=== PATIENT | male | born 1970 | race Caucasian/White ===

== ENCOUNTER → 2018-02-07 12:31 | Outpatient (CLI) | payer OTHER, SELFPAY | PROVIDERS: PCP Family Medicine | DX: Z23 Encounter for immunization (principal) | CPT/HCPCS: 90471; 90686 ==

== ENCOUNTER → 2019-02-20 15:36 | Outpatient (CLI) | payer OTHER, SELFPAY | PROVIDERS: PCP Family Medicine | DX: Z23 Encounter for immunization (principal) | CPT/HCPCS: 90471; 90686 ==

== ENCOUNTER → 2022-04-11 08:36 | Outpatient (CLI) | payer OTHER, SELFPAY ==
[2022-04-11 10:02] LABS: Add Manual Diff / Slide Review NO; Basophils Absolute Auto 0 /uL (0-100); Basophils Percent Auto 0.6 % (0-2); Eosinophils Absolute Auto 100 /uL (0-450); Hematocrit 43.4 % (41-53); Lymphocytes Absolute Auto 1300 /uL (1100-4500); Mean Corpuscular HGB Conc 34.6 % (30-36); Mean Corpuscular Hemoglobin 29.9 PG (26-34); Mean Corpuscular Volume 86.5 fL (80-100); Monocytes Absolute Auto 400 /uL (0-900); Monocytes Percent Auto 8.9 % (3-14); Neutrophils Absolute Auto 3000 /uL (1500-7000); Neutrophils Percent Auto 61.5 % (50-75); Platelet Count 235 X10^3/uL (150-400); Red Blood Cell Count 5.01 X10^6/uL (4.5-5.9); Red Cell Distribution Width 13.8 % (11.6-14.8); White Blood Cell Count 4.9 X10^3/uL (4.5-11.0)
[2022-04-11 16:04] LABS: Alanine Aminotransferase 28 IU/L (<50); Albumin 4.5 g/dL (3.5-5.0); Albumin Globulin Ratio 1.4 (1.0-2.8); Alkaline Phosphatase 85 U/L (38-126); Aspartate Aminotransferase 27 IU/L (17-59); BUN Creatinine Ratio 17.6 (6-22); Bilirubin Total 0.6 mg/dL (0.2-1.3); Blood Urea Nitrogen 13 mg/dL (9-20); Calcium 9.3 mg/dL (8.4-10.2); Carbon Dioxide 30 mmol/L (22-32); Chloride 101 mmol/L (98-107); Cholesterol 215 mg/dL (140-199); Estimated Glomerular Filt Rate > 60 mL/min (>60); Globulin 3.2 g/dL (1.7-4.1); Glucose 95 mg/dL (70-100); HDL Cholesterol 51 mg/dL (40-60); HEMOLYSIS < 15 (0-50); LDL Cholesterol Calculated 132 mg/dL (<100); Potassium 4.6 mmol/L (3.4-5.1); Sodium 140 mmol/L (137-145); Total Protein 7.7 g/dL (6.3-8.2); Triglycerides 159 mg/dL (35-150)
== END ==
PROVIDERS: PCP Family Medicine; Referring Provider Family Medicine; Visit Provider Family Medicine
DX: Z13.220 Encounter for screening for lipoid disorders (principal)
CPT/HCPCS: 36415; 80053; 80061; 84443; 85025

== ENCOUNTER 2023-04-06 06:37 | Day surgery (SDC) | payer OTHER, SELFPAY ==
[2023-04-06] VITALS (8 sets, daily range): BP systolic 86–145; BP diastolic 60–83; PULSE 65–75; RESP 14–18; TEMP 36.1–36.2; O2SAT 97–100; BMI 24.3
--- NOTE | 2023-04-06 | PATH_ITS ---
[facility] Accession Number: [id number] No. of containers..01 Tissue . 01 Material submitted: . rectum - RECTAL POLYP . 01 Diagnosis: Rectal Polyp: Superficial portion of colorectal mucosa with multiple benign lymphoid aggregates and patchy, mild hyperplastic mucosal change. [facility] 04/19/2023 1419 Local . 01 Electronically signed: . Sarah Verduzco MD, Pathologist NPI- [id number] . 01 Gross description: . RECTAL POLYP: Received in formalin is 1 fragment(s) of acharya, soft tissue measuring 0.5 x 0.3 x 0.1 cm submitted entirely in 1 cassette(s) /AAY 04/10/2023 0143 Local . 01 Pathologist provided ICD-10: K63.5 . 01 CPT . 655517 Specimen Comment: A courtesy copy of this report has been sent to [phone] Performed at: 01 [facility] [address] [place] [address] [address] [facility] [place][note 2], [place], [place] [id number] MD Peter Curran MD Phone: [phone]
[2023-04-06] MEDS: LACTATED RINGERS 1,000 ML 120 ML IV (07:07)
--- NOTE | 2023-04-06 07:51 | P.HP_ITS ---
History of Present Illness History of Present Illness Date Patient Seen: 04/06/23 Time Patient Seen: 07:51 Chief complaint: Screening Colonoscopy Narrative: No family history for colon cancer, last scope 10 yrs ago for abdominal pain. FORMERLY [facility], 1928–1983 Surgical History Status post eye surgery Status post colonoscopy Status post colonoscopy Family History Father Heart disease Hypertension Mother Age: 73 Cancer Heart disease Hypertension High cholesterol Osteoporosis Social History marital status: household members: spouse Smoking Status: Never smoker alcohol intake: current substance use type: does not use Meds Home Medications and Allergies Home Medications Medication Instructions Recorded Confirmed Type desonide 0.05 % topical cream See Rx Instructions .Route 09/11/22 04/06/23 Rx .COMPLEX #60 grams sodium,potassium,mag sulfates 17.5 See Rx Instructions PO .COMPLEX 03/30/23 Rx gram-3.13 gram-1.6 gram oral soln #354 mL (Suprep Bowel Prep Kit) nortriptyline 10 mg capsule 90 mg PO BEDTIME 04/06/23 04/06/23 History Allergies Allergy/AdvReac Type Severity Reaction Status Date / Time No Known Drug Allergies Allergy Verified 04/06/23 06:44 Review of Systems Review of Systems ROS: Yes All systems reviewed with the patient and are negative except as otherwise documented Exam Vital Signs (past 8 hours): - 04/06/23 06:52 Temperature 97.2 F L Pulse Rate 75 Respiratory Rate 16 Blood Pressure 130/83 Pulse Oximetry 99 Oxygen Delivery Method Room Air Oxygen Delivery Method Room Air Const General: cooperative and anxious Nutritional Appearance: average body habitus [facility] Head: normocephalic and atraumatic Eyes General: appearance normal, both eyes and all related structures Neck Neck: trachea midline Chest Chest: normal inspection of the chest Resp Effort & Inspection: normal respiratory effort and able to speak in complete sentences Cardio Rate: regular rate Rhythm: regular rhythm GI Palpation: soft and No tender Skin General: turgor normal and crusts Neuro General: patient alert, patient awake and patient oriented x3 Psych Appearance: grossly normal Mental Status: mental status grossly normal Judgment: judgment good Assessment & Plan Assessment & Plan narrative: colon cancer screening with colonoscopy using anesthesia Time Spent With Patient Time with patient: less than 30 minutes
--- NOTE | 2023-04-06 08:10 | PM.OP.COLON ---
Operative Date/Time/Diagnoses Date of procedure: 04/06/23 Time of procedure: 08:10 Pre-op diagnosis: Colon cancer screening Post-op diagnosis: same Procedure & Clinicians Study performed: Colonoscopy with anesthesia and cold forceps polypectomy Same procedure as scheduled: Yes Indications: Colon cancer screening Surgeon: Julianna Conti Procedure Notes Procedure in detail: Preop diagnosis: Colon cancer screening Postop diagnosis: Same Operative procedure: Colonoscopy with cold forceps polypectomy using anesthesia Surgeon: Mounika Conti MD Findings: Small sessile 2 mm polyp in the rectum. Procedure: Patient placed in a lateral position. Rectal exam performed showing normal tone no masses. Colonoscope inserted into the rectum and advanced to ileocecal valve with minimal difficulty. Insufflation extraction of the scope and the above findings. Retroflex was included in the rectum. Impression: Small adenomatous appearing polyp removed from the rectum. No diverticulosis identified. Plan: Anticipate this will be an adenomatous polyp of pathology, if it is, he will need screening every 5 years. Findings: polyp(s) (2 mm, sessile, rectum) Specimen(s): other (Polyp) Complications: none Post-procedure Recommendations: Colonoscopy in 5 years Follow up: as needed Disposition: PACU
== END 2023-04-06 08:56 | disposition home or self-care (01) ==
PROVIDERS: PCP Family Medicine; Referring Provider Surgery; Visit Provider Surgery
PROC: 0DJD8ZZ Inspection of Lower Intestinal Tract, Via Natural or Artificial Opening Endoscopic (ICD-10-PCS; CPT 45378; principal; 2023-04-06 07:45)
DX: Z12.11 Encounter for screening for malignant neoplasm of colon (principal); K63.5 Polyp of colon
CPT/HCPCS: 45380; J2704

== ENCOUNTER → 2024-04-01 08:19 | Outpatient (CLI) | payer OTHER, SELFPAY ==
[2024-04-01 09:27] LABS: Add Manual Diff / Slide Review NO; Basophils Absolute Auto 0 /uL (0-100); Basophils Percent Auto 0.9 % (0-2); Eosinophils Absolute Auto 100 /uL (0-450); Eosinophils Percent Auto 3.2 % (2-4); Hematocrit 43.2 % (41-53); Hemoglobin 14.6 g/dL (13.5-17.5); Lymphocytes Absolute Auto 1200 /uL (1100-4500); Lymphocytes Percent Auto 27.9 % (25-40); Mean Corpuscular HGB Conc 33.9 % (30-36); Mean Corpuscular Hemoglobin 29.9 PG (26-34); Mean Corpuscular Volume 88.3 fL (80-100); Monocytes Absolute Auto 400 /uL (0-900); Neutrophils Absolute Auto 2500 /uL (1500-7000); Platelet Count 293 X10^3/uL (150-400); Red Blood Cell Count 4.89 X10^6/uL (4.5-5.9); Red Cell Distribution Width 13.8 % (11.6-14.8); White Blood Cell Count 4.3 X10^3/uL (4.5-11.0)
[2024-04-01 10:00] LABS: Alanine Aminotransferase 27 IU/L (<50); Albumin 4.7 g/dL (3.5-5.0); Albumin Globulin Ratio 1.6 (1.0-2.8); Alkaline Phosphatase 74 U/L (38-126); Aspartate Aminotransferase 35 IU/L (17-59); Bilirubin Total 0.7 mg/dL (0.2-1.3); Blood Urea Nitrogen 15 mg/dL (9-20); Carbon Dioxide 27 mmol/L (22-32); Chloride 105 mmol/L (98-107); Cholesterol 233 mg/dL (140-199); Estimated Glomerular Filt Rate > 60 mL/min (>60); Glucose 104 mg/dL (70-100); HDL Cholesterol 57 mg/dL (40-60); HEMOLYSIS < 15 (0-50); LDL Cholesterol Calculated 159 mg/dL (<100); Potassium 4.7 mmol/L (3.4-5.1); Sodium 139 mmol/L (137-145); Total Protein 7.7 g/dL (6.3-8.2); Triglycerides 84 mg/dL (35-150)
[2024-04-01 10:32] LABS: TSH w/ Reflex to FT4 0.77 uIU/mL (0.47-4.68)
== END ==
PROVIDERS: PCP Family Medicine; Referring Provider Family Medicine; Visit Provider Family Medicine
DX: Z13.220 Encounter for screening for lipoid disorders (principal); R10.9 Unspecified abdominal pain
CPT/HCPCS: 36415; 80053; 80061; 84443; 85025

== ENCOUNTER 2024-07-21 20:25 | Emergency (ER) | payer OTHER, SELFPAY ==
[2024-07-21] VITALS (11 sets, daily range): BP systolic 133–156; BP diastolic 81–93; PULSE 68–83; RESP 17–20; TEMP 36.6; O2SAT 95–98; BMI 25.0
--- NOTE | 2024-07-21 21:00 | DI.CT.S_ITS ---
PROCEDURE: CT HEAD/BRAIN WO CON INDICATIONS: worse headache of life TECHNIQUE: Noncontrast 4.5 mm thick angled axial sections acquired from the foramen magnum to the vertex, with coronal and sagittal reformats. For radiation dose reduction, the following was used: automated exposure control, adjustment of mA and/or kV according to patient size. COMPARISON: None. FINDINGS: Image quality: Diagnostic. CSF spaces: Basal cisterns are patent. No extra-axial fluid collections. Ventricles are normal in size and shape. Brain: No midline shift. No intracranial masses or hemorrhage. Garcia-white matter interface is normal. Skull and face: Calvarium and visualized facial bones are intact, without suspicious lesions. Sinuses: Visualized sinuses and mastoids are clear. IMPRESSION: No acute intracranial pathology. Dictated by: Merritt Rodriguez M.D. on 07/21/2024 at 21:25 Approved by: Merritt Rodriguez M.D. on 07/21/2024 at 21:26
--- NOTE | 2024-07-21 21:19 | PC.NURSE ---
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 Patient states that nothing makes the headache better or worse, has tried excedrin, tylenol, advil, percocet
[2024-07-21] MEDS: PROCHLORPERAZINE 10 MG/2 ML VIAL IV (22:05)
[2024-07-21] MEDS: PROPARACAINE 0.5% OPHTH SOL 1 DROPS EYE-LEFT (22:06)
[2024-07-21] MEDS: KETOROLAC 30 MG/ML VIAL 15 MG IV (22:06)
[2024-07-21] MEDS: SODIUM CHLORIDE 0.9% 1,000 ML 1000 ML IV (22:06)
[2024-07-22] VITALS: BP 129/84; PULSE 73; O2SAT 95
--- NOTE | 2024-07-22 | ED_ITS ---
HPI - Headache General Chief Complaint: Headache Stated Complaint: HI x3 days Time Seen by Provider: 07/21/24 21:38 Mode of arrival: Ambulatory History of Present Illness HPI Narrative: Patient is a 53-year-old healthy male who had cornea transplant in the right eye 8 months ago is followed closely with Ophthalmology in [place]. Reports that he started taking 60 mg of prednisone 2 days ago he has had 2 doses and started having headaches. He thinks he is reacting to the prednisone. He felt a little nauseous no vomiting weakness. They just started taking out some of the sutures from his corneal transplant. They recently took out a couple in his eye got really inflamed. He denies any fever chills no neck pain. He has not had his eyedrops tonight. Related Data Previous Rx's Medication Instructions Recorded desonide 0.05 % topical cream See Rx Instructions .Route 08/27/23 .COMPLEX #60 grams ipratropium bromide 21 mcg (0.03 2 spray intranasal BID-TID PRN 10/22/23 %) nasal spray allergy symptoms #30 mL ketoconazole 2 % topical cream See Rx Instructions topical BID 10/22/23 #60 grams nortriptyline 10 mg capsule 30 mg (3 x 10 mg) PO ONCE PM #90 07/15/24 caps hydrocodone 5 mg-acetaminophen 325 1 tab PO Q6H PRN pain #10 tabs 07/22/24 mg tablet Allergies Allergy/AdvReac Type Severity Reaction Status Date / Time No Known Drug Allergies Allergy Verified 10/22/23 15:32 Patient History Surgical History Status post eye surgery Status post colonoscopy Status post colonoscopy Family History Father Heart disease Hypertension Mother Age: 75 Cancer Heart disease Hypertension High cholesterol Osteoporosis Social History marital status: household members: spouse Smoking Status: Never smoker alcohol intake: current substance use type: does not use Smoking Status: Never smoker alcohol intake frequency: a few times a month Exam Initial Vital Signs Initial Vital Signs: Vital Signs Temperature 97.8 F 07/21/24 20:31 Pulse Rate 83 07/21/24 20:31 Respiratory Rate 20 07/21/24 20:31 Blood Pressure 156/93 H 07/21/24 20:31 Pulse Oximetry 98 07/21/24 20:31 Oxygen Delivery Method Room Air 07/21/24 20:31 GENERAL: Alert 53-year-old male no acute distress HEENT: Head atraumatic,EOMI, pupils reactive, face symmetric, moist mucous membranes, not tender over temporal artery EYES: Right eye erythematous pressure 23 mmHg, extraocular muscles intact Left eye extraocular movements intact within normal limits pressure 25 mm Hg CARDIOVASCULAR: Regular rate and rhythm without murmurs, rubs or gallops. RESPIRATORY: Breath sounds equal bilaterally, no wheezes rales or rhonchi. EXTREMITIES: Normal range of motion, no clubbing or edema. Neurovascularly intact NEUROLOGICAL: Alert and oriented x4.Normal gait and speech. Cranial nerves II through XII grossly intact. Radio Technician strength equal bilaterally SKIN: Warm, dry, no laceration, no petechiae, no rashes or lesions. Course Orders Ordered: ED Orders 07/21/24 21:00 CT head/brain wo con Stat Discontinued Medications Hydrocodone Bitart/Acetaminophen (Hydrocodone/Acet 5/325 Prepack) 1 bottle MISC DIRECTED ONE Stop: 07/22/24 00:19 Last Admin: 07/22/24 00:25 Dose: 1 bottle Documented By: ESTEBAN Sodium Chloride (Normal Saline 0.9%) 1,000 mls @ 1,000 mls/hr IV BOLUS ONE Stop: 07/21/24 22:55 Last Infusion: 07/21/24 22:52 Dose: Infused Documented By: Admin: 07/21/24 22:06 Dose: 1,000 mls/hr Documented By: ARCELIA Ketorolac Tromethamine (Ketorolac 30 Mg/Ml Vial) 15 mg IV NOW ONE Stop: 07/21/24 21:57 Last Admin: 07/21/24 22:06 Dose: 15 mg Documented By: ARCELIA Prochlorperazine (Prochlorperazine 10 Mg/2 Ml Vial) 10 mg IV NOW ONE Stop: 07/21/24 21:57 Last Admin: 07/21/24 22:05 Dose: 10 mg Documented By: ARCELIA Proparacaine HCl (Proparacaine 0.5% Ophth Coty) 1 drops EYE-LEFT NOW ONE Stop: 07/21/24 21:59 Last Admin: 07/21/24 22:06 Dose: 1 drop Documented By: ARCELIA Vital Signs Vital signs: Vital Signs - 8 hr 07/21/24 20:54 07/21/24 21:00 07/21/24 21:01 Pulse Rate 76 77 Respiratory Rate Blood Pressure 156/91 H Pulse Oximetry 97 96 Oxygen Delivery Method 07/21/24 21:01 07/21/24 21:30 07/21/24 22:00 Pulse Rate 77 72 70 Respiratory Rate Blood Pressure Pulse Oximetry 96 95 95 Oxygen Delivery Method Room Air 07/21/24 22:05 07/21/24 22:11 07/21/24 22:11 Pulse Rate 73 83 Respiratory Rate Blood Pressure 156/91 H 141/85 H Pulse Oximetry 95 Oxygen Delivery Method 07/21/24 22:30 07/21/24 22:30 07/21/24 23:00 Pulse Rate 69 68 Respiratory Rate 18 17 Blood Pressure 142/85 H Pulse Oximetry 95 96 Oxygen Delivery Method Room Air Room Air 07/21/24 23:00 07/21/24 23:30 07/21/24 23:30 Pulse Rate 71 Respiratory Rate Blood Pressure 133/82 138/81 Pulse Oximetry 96 Oxygen Delivery Method 07/22/24 00:00 07/22/24 00:00 07/22/24 00:30 Pulse Rate 73 77 Respiratory Rate 14 Blood Pressure 129/84 Pulse Oximetry 95 96 Oxygen Delivery Method 07/22/24 00:30 Pulse Rate Respiratory Rate Blood Pressure 136/83 Pulse Oximetry Oxygen Delivery Method MDM - Headache Imaging Data CT scan - head: Radiologist's Impression: PROCEDURE: CT HEAD/BRAIN WO CON INDICATIONS: worse headache of life TECHNIQUE: Noncontrast 4.5 mm thick angled axial sections acquired from the foramen magnum to the vertex, with coronal and sagittal reformats. For radiation dose reduction, the following was used: automated exposure control, adjustment of mA and/or kV according to patient size. COMPARISON: None. FINDINGS: Image quality: Diagnostic. CSF spaces: Basal cisterns are patent. No extra-axial fluid collections. Ventricles are normal in size and shape. Brain: No midline shift. No intracranial masses or hemorrhage. Garcia-white matter interface is normal. Skull and face: Calvarium and visualized facial bones are intact, without suspicious lesions. Sinuses: Visualized sinuses and mastoids are clear. IMPRESSION: No acute intracranial pathology. Dictated by: Merritt Rodriguez M.D. on 07/21/2024 at 21:25 Approved by: Merritt Rodriguez M.D. on 07/21/2024 at 21:26 MDM Narrative Medical decision making narrative: Patient 53-year-old male presenting today with headache. Reports that headache started when he started prednisone. It is on the top of his head. He was having ongoing eye issues. He was actually scheduled to see Ophthalmology today however they had to cancel so it is rescheduled for tomorrow. He continues to be on topical steroid drops they did tell him to stop the prednisone. He does not typically get headaches. He has no focal deficits no weakness. He received Toradol and Compazine overall feeling much better. Head CT has been reviewed and also negative. He is tender over temporal artery, unlikely temporal arteritis. Pressure in both eyes in the 20s no concern for acute angle glaucoma Discharge Plan Departure Patient Disposition: Home Clinical Impression: Headache Instructions: DI for Headache Activity Restrictions/Additional Instructions: *You have been diagnosed with headache *What to do: At this time please follow-up with your eye surgeon tomorrow as scheduled *Continue to take medications as directed Parnell 1-2 tablets every 6 hours if needed for severe pain *Follow up with your primary care provider in 2-3 days or call [phone] *Return to ER if you should have increasing headache nausea vomiting weakness or any new, worsening or concerning symptoms CONTROLLED SUBSTANCE DISCHARGE (Narcotoic/benzodiazepine/Flexeril/Phenergan) 1. You have been prescribed narcotic medications, it does have acetaminophen/Tylenol/paracetamol in it, DO NOT TAKE MORE THAN 4,00mg in 24 hours of Tylenol. TRAMADOL DOES NOT CONTAIN TYLENOL 2. Please understand that we cannot provide further refills of narcotics, benzodiazepines or controlled substances through the ED and her pain management will need to be through your provider. 3. While on these medications you cannot drive or operate heavy machinery. 4. You cannot sign legal documents or perform any duties such as this. 5. As long as you're taking opiate pain medications he should also be taking a stool softener such as Colace, Dulcolax, MiraLAX or prune juice, to help avoid constipation. Prescriptions: New hydrocodone-acetaminophen 5-325 mg tablet 1 tab PO Q6H PRN (Reason: pain) Qty: 10 0RF No Action desonide 0.05 % cream See Rx Instructions .ROUTE .COMPLEX Qty: 60 2RF Dose Instruction: 1 applic topically twice a day Rx Instructions: 1 applic topically twice a day nortriptyline 10 mg capsule 30 mg PO ONCE PM Qty: 90 0RF Rx Instructions: Due for appointment prior to additional refills. Please call to schedule. ipratropium bromide 21 mcg (0.03 %) spray,non-aerosol 2 spray intranasal BID-TID PRN (Reason: allergy symptoms) Qty: 30 0RF Rx Instructions: administer into each nostril ketoconazole 2 % cream See Rx Instructions topical BID Qty: 60 0RF Rx Instructions: 1mg toppically bid TOP BID; Referrals: Anthony Driscoll MD [Primary Care Provider] - Stand Alone Forms: Patient Portal/API/Survey
[2024-07-22] MEDS: HYDROCODONE/ACET 5/325 PREPACK 1 BOTTLE MISC (00:25)
[2024-07-22 00:30] VITALS: BP 136/83; PULSE 77; RESP 14; O2SAT 96
== END 2024-07-22 00:39 | disposition home or self-care (01) ==
PROVIDERS: Emergency Provider Emergency Medicine; PCP Family Medicine
DX: R51.9 Headache, unspecified (principal); R11.0 Nausea
CPT/HCPCS: 36415; 70450; 96361; 96374; 96375; 99284; J0780; J1885